=== PATIENT | male | born 1970 | race African-American/Black ===

== ENCOUNTER 2019-03-14 03:20 | Emergency (ER) | payer SELFPAY ==
[2019-03-14] MEDS ORDERED: Metoclopramide 10 MG/2 ML SDV IVPUSH ONE (03:53)
[2019-03-14] MEDS ORDERED: Acetaminophen 325 MG Tab PO PRN (03:54)
--- NOTE | 2019-03-14 03:54 | EDM.PDOC ---
ED HPI GENERAL MEDICAL PROBLEM - General Chief Complaint: General Stated Complaint: BODY ACHES/NUMBNESS IN LEGS Time Seen by Provider: 03/14/19 03:48 Source of Information: Reports: Patient History Limitations: Reports: No Limitations - History of Present Illness INITIAL COMMENTS - FREE TEXT/NARRATIVE: 48-year-old male of descent presents to the ED with an illness that started last March 05. He presents with recurrent fever and chills. He's had intermittent nausea and vomiting. No diarrhea. Since today due to generalized severe weakness and cramping in his lower extremities. He feels very weak and dizzy when he tries to stand and is barely able to walk. Denies cough or sputum production. He admits that he has uncontrolled hypertension as his initial BP is 230/130. Denies any dysuria urgency or frequency. Denies having sex with other men. He states he knows he's losing weight but not sure how much. Can't eat at all for the last 3-4 days. They're unable to keep down a little fluids. Patient states he doesn't take any medications. He is been advised that it remains high blood pressure medicines but has not been taking any. Planes of a diffuse headache. Onset: Gradual Onset Date: 03/05/19 Duration: Day(s): (Is been sick for the last 7 days.), Getting Worse Location: Reports: Generalized, Other (Generalized bodyaches myalgia particularly his lower extremities. Associated headache. Decreased appetite barely able to take any food or solids and for 4 days.) Quality: Reports: Ache (Intermittent cramping in his lower extremities. His body ache.), Other Severity: Moderate Improves with: Reports: None Worsens with: Reports: Other Context: Denies: Activity, Exercise (Seems to be worse when he stands up or tries to walk.), Lifting, Sick Contact, Trauma, Other Associated Symptoms: Reports: Diaphoresis, Fever/Chills, Headaches, Loss of Appetite, Malaise, Nausea/Vomiting, Weakness, Other (Denies any diarrhea.). 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 [No Known Home Meds] 03/14/19 [History] Past Medical History Cardiovascular History: Reports: Hypertension (But has never been on medication for this but advised that he should be on medication for it but is refused treatment.) Social & Family History - Living Situation & Occupation Living situation: Reports: Single ED ROS GENERAL - Review of Systems Review Of Systems: See Below Constitutional: Reports: Fever, Chills, Malaise, Weakness, Fatigue, Decreased Appetite HEENT: Reports: Other (Photosensitive eyes.) Respiratory: Reports: No Symptoms Cardiovascular: Reports: Blood Pressure Problem. Denies: Chest Pain, Claudication, Dyspnea on Exertion, Edema, Lightheadedness, Orthopnea ( Hypertension) Endocrine: Reports: Fatigue GI/Abdominal: Reports: Decreased Appetite, Nausea, Vomiting (Has had intermittent nausea and vomiting over the last few days but usually once daily.) . Denies: Diarrhea : Reports: Other (Making very little urine. Start gambling color.) Musculoskeletal: Reports: Muscle Pain (Analyzed severe myalgia.) Skin: Reports: No Symptoms Neurological: Reports: Dizziness, Numbness (Dizziness when he stands up.), Tingling, Difficulty Walking ( since his legs), Weakness (His lower extremities) . Denies: Confusion Psychiatric: Reports: No Symptoms Hematologic/Lymphatic: Reports: No Symptoms Immunologic: Reports: No Symptoms ED EXAM, GENERAL - Physical Exam Exam: See Below Exam Limited By: No Limitations General Appearance: Alert, WD/WN, Moderate Distress, Other (She looks very ill.) Eye Exam: Bilateral Eye: Normal Inspection (No scleral icterus.) Ears: Normal TMs Ear Exam: Right Ear: TM Red Throat/Mouth: Other Head: Atraumatic, Normocephalic (Is coated and dry.) Neck: Normal Inspection, Supple, Non-Tender, Full Range of Motion. No: Lymphadenopathy (L), Lymphadenopathy (R) Respiratory/Chest: No Respiratory Distress, Lungs Clear, Normal Breath Sounds, No Accessory Muscle Use, Chest Non-Tender Cardiovascular: Normal Peripheral Pulses, Regular Rate, Rhythm, No Edema, No Gallop, No Murmur Peripheral Pulses: 3+: Posterior Tibial (L), Posterior Tibial (R), Dorsalis Pedis (L), Dorsalis Pedis (R) GI/Abdominal: Normal Bowel Sounds, Soft, Non-Tender, No Organomegaly, No Abnormal Bruit, No Mass, Pelvis Stable, Other (No surgical scars.). No: Guarding, Rigid, Rebound Back Exam: Normal Inspection, Full Range of Motion. No: CVA Tenderness (L), CVA Tenderness (R) Extremities: Normal Inspection, Normal Range of Motion, No Pedal Edema, Other ( Interval palpation in his musculature of his lower extremities but there is no signs of DVT or edema.) Neurological: Alert, Oriented, CN II-XII Intact, Normal Cognition. No: Normal Gait Psychiatric: Normal Affect, Normal Mood Skin Exam: Warm, Dry, Intact, Normal Color, No Rash EKG INTERPRETATION EKG Date: 03/14/19 Time: 04:52 Rhythm: NSR Rate (Beats/Min): 61 [place]: LAD-Left [place] Deviation P-Wave: Enlarged (Mild left axis deviation of -18) QRS: Other (left atrial hypertrophy severe left ventricular hypertrophy pattern with strain or repolarization abnormality. There is diffuse early repolarization pattern secondary to left ventricular hypertrophy pattern.) QT: Prolonged (QTC is moderately prolonged.) EKG Interpretation Comments: Abnormal ECG Course - Vital Signs Last Recorded V/S: Last Vital Signs Temp 37.2 C 03/14/19 03:36 Pulse 64 03/14/19 03:36 Resp 16 03/14/19 03:36 BP 210/106 H 03/14/19 06:02 Pulse Ox 100 03/14/19 03:36 - Orders/Labs/Meds Orders: Active Orders 24 hr Category Date Time Status EKG Documentation Completion [RC] STAT Care 03/14/19 03:49 Active EKG Documentation Completion [RC] STAT Care 03/14/19 03:55 Active Chest 1V Frontal [CR] Stat Exams 03/14/19 03:49 Taken CULTURE BLOOD [BC] Stat Lab 03/14/19 04:00 Received CULTURE BLOOD [BC] Stat Lab 03/14/19 04:11 Received MAGNESIUM [CHEM] Stat Lab 03/14/19 07:25 Received PRO B-TYPE NATRIUR PEPT,BNPPRO [CHEM] Stat Lab 03/14/19 07:25 Received Acetaminophen [Tylenol] Med 03/14/19 03:54 Active 975 mg PO Q4H PRN Dextrose 5%-0.9% NaCl [Dextrose 5%-Normal Saline] 1,000 Med 03/14/19 04:00 Active ml IV ASDIRECTED niCARdipine HCl [Nicardipine HCl] 25 mg Med 03/14/19 07:15 Active Sodium Chloride 0.9% [Normal Saline] 250 ml IV ASDIRECTED Blood Culture x2 Reflex Set [OM.PC] Stat Oth 03/14/19 03:50 Ordered Medication Orders Acetaminophen (Tylenol) 975 mg PO Q4H PRN PRN Reason: Pain Last Admin: 03/14/19 04:06 Dose: 975 mg Dextrose/Sodium Chloride (Dextrose 5%-Normal Saline) 1,000 mls @ 999 mls/hr IV ASDIRECTED MAURY Last Admin: 03/14/19 04:05 Dose: 999 mls/hr Nicardipine HCl 25 mg/ Sodium (Chloride) 260 mls @ 52 mls/hr IV ASDIRECTED MAURY Last Admin: 03/14/19 07:35 Dose: 5 mg/hr, 52 mls/hr Labs: Laboratory Tests 03/14/19 03/14/19 03/14/19 Range/Units 04:00 04:00 04:00 WBC 4.99 (4.23-9.07) K/mm3 RBC 5.58 (4.63-6.08) M/mm3 Hgb 16.2 (13.7-17.5) gm/dl Hct 45.8 (40.1-51.0) % MCV 82.1 (79.0-92.2) fl MCH 29.0 (25.7-32.2) pg MCHC 35.4 (32.2-35.5) g/dl RDW Std Deviation 42.7 (35.1-43.9) fL Plt Count 256 (163-337) K/mm3 MPV 10.5 (9.4-12.3) fl Neutrophils % (Manual) 75 H (40-60) % Band Neutrophils % 0 (0-10) % Lymphocytes % (Manual) 12 L (20-40) % Atypical Lymphs % 0 % Monocytes % (Manual) 13 H (2-10) % Eosinophils % (Manual) 0 L (0.8-7.0) % Basophils % (Manual) 0 L (0.2-1.2) Platelet Estimate Adequate Plt Morphology Comment Normal RBC Morph Comment Normal ESR 14 (0-15) mm/hr PT 11.9 (9.7-12.0) SECONDS INR 1.10 APTT 25 (22-31) SECONDS Sodium (136-145) mEq/L Potassium (3.5-5.1) mEq/L Chloride (98-107) mEq/L Carbon Dioxide (21-32) mEq/L Anion Gap (5-15) BUN (7-18) mg/dL Creatinine (0.7-1.3) mg/dL Est Cr Clr Drug Dosing mL/min Estimated GFR (MDRD) (>60) mL/min BUN/Creatinine Ratio (14-18) Glucose (74-106) mg/dL Calcium (8.5-10.1) mg/dL Total Bilirubin (0.2-1.0) mg/dL AST (15-37) U/L ALT (16-63) U/L Alkaline Phosphatase (46-116) U/L Creatine Kinase (39-308) U/L C-Reactive Protein (<1.0) mg/dL Total Protein (6.4-8.2) g/dl Albumin (3.4-5.0) g/dl Globulin gm/dL Albumin/Globulin Ratio (1-2) TSH 3rd Generation (0.358-3.74) uIU/mL Urine Color (Yellow) Urine Appearance (Clear) Urine pH (5.0-8.0) Ur Specific [place] (1.005-1.030) Urine Protein (Negative) Urine Glucose (UA) (Negative) Urine Ketones (Negative) Urine Occult Blood (Negative) Urine Nitrite (Negative) Urine Bilirubin (Negative) Urine Urobilinogen (0.2-1.0) Ur Leukocyte Esterase (Negative) Urine RBC (0-5) /hpf Urine WBC (0-5) /hpf Ur Epithelial Cells (0-5) /hpf Urine Bacteria (FEW) /hpf Fine Granular Casts (0-5) /lpf Urine Mucus (FEW) /hpf Monoscreen (NEGATIVE) HIV-1 Ab Rapid Screen (NEGATIVE) 03/14/19 03/14/19 03/14/19 Range/Units 04:00 04:00 04:00 WBC (4.23-9.07) K/mm3 RBC (4.63-6.08) M/mm3 Hgb (13.7-17.5) gm/dl Hct (40.1-51.0) % MCV (79.0-92.2) fl MCH (25.7-32.2) pg MCHC (32.2-35.5) g/dl RDW Std Deviation (35.1-43.9) fL Plt Count (163-337) K/mm3 MPV (9.4-12.3) fl Neutrophils % (Manual) (40-60) % Band Neutrophils % (0-10) % Lymphocytes % (Manual) (20-40) % Atypical Lymphs % % Monocytes % (Manual) (2-10) % Eosinophils % (Manual) (0.8-7.0) % Basophils % (Manual) (0.2-1.2) Platelet Estimate Plt Morphology Comment RBC Morph Comment ESR (0-15) mm/hr PT (9.7-12.0) SECONDS INR APTT (22-31) SECONDS Sodium 137 (136-145) mEq/L Potassium 3.3 L (3.5-5.1) mEq/L Chloride 99 (98-107) mEq/L Carbon Dioxide 27 (21-32) mEq/L Anion Gap 14.3 (5-15) BUN 24 H (7-18) mg/dL Creatinine 2.1 H (0.7-1.3) mg/dL Est Cr Clr Drug Dosing 42.07 mL/min Estimated GFR (MDRD) 34 (>60) mL/min BUN/Creatinine Ratio 11.4 L (14-18) Glucose 123 H (74-106) mg/dL Calcium 10.1 (8.5-10.1) mg/dL Total Bilirubin 0.9 (0.2-1.0) mg/dL AST 40 H (15-37) U/L ALT 38 (16-63) U/L Alkaline Phosphatase 118 H (46-116) U/L Creatine Kinase 431 H (39-308) U/L C-Reactive Protein 0.5 (<1.0) mg/dL Total Protein 8.9 H (6.4-8.2) g/dl Albumin 4.4 (3.4-5.0) g/dl Globulin 4.5 gm/dL Albumin/Globulin Ratio 1.0 (1-2) TSH 3rd Generation (0.358-3.74) uIU/mL Urine Color (Yellow) Urine Appearance (Clear) Urine pH (5.0-8.0) Ur Specific [place] (1.005-1.030) Urine Protein (Negative) Urine Glucose (UA) (Negative) Urine Ketones (Negative) Urine Occult Blood (Negative) Urine Nitrite (Negative) Urine Bilirubin (Negative) Urine Urobilinogen (0.2-1.0) Ur Leukocyte Esterase (Negative) Urine RBC (0-5) /hpf Urine WBC (0-5) /hpf Ur Epithelial Cells (0-5) /hpf Urine Bacteria (FEW) /hpf Fine Granular Casts (0-5) /lpf Urine Mucus (FEW) /hpf Monoscreen (NEGATIVE) HIV-1 Ab Rapid Screen Negative (NEGATIVE) 03/14/19 03/14/19 03/14/19 Range/Units 04:00 04:00 05:10 WBC (4.23-9.07) K/mm3 RBC (4.63-6.08) M/mm3 Hgb (13.7-17.5) gm/dl Hct (40.1-51.0) % MCV (79.0-92.2) fl MCH (25.7-32.2) pg MCHC (32.2-35.5) g/dl RDW Std Deviation (35.1-43.9) fL Plt Count (163-337) K/mm3 MPV (9.4-12.3) fl Neutrophils % (Manual) (40-60) % Band Neutrophils % (0-10) % Lymphocytes % (Manual) (20-40) % Atypical Lymphs % % Monocytes % (Manual) (2-10) % Eosinophils % (Manual) (0.8-7.0) % Basophils % (Manual) (0.2-1.2) Platelet Estimate Plt Morphology Comment RBC Morph Comment ESR (0-15) mm/hr PT (9.7-12.0) SECONDS INR APTT (22-31) SECONDS Sodium (136-145) mEq/L Potassium (3.5-5.1) mEq/L Chloride (98-107) mEq/L Carbon Dioxide (21-32) mEq/L Anion Gap (5-15) BUN (7-18) mg/dL Creatinine (0.7-1.3) mg/dL Est Cr Clr Drug Dosing mL/min Estimated GFR (MDRD) (>60) mL/min BUN/Creatinine Ratio (14-18) Glucose (74-106) mg/dL Calcium (8.5-10.1) mg/dL Total Bilirubin (0.2-1.0) mg/dL AST (15-37) U/L ALT (16-63) U/L Alkaline Phosphatase (46-116) U/L Creatine Kinase (39-308) U/L C-Reactive Protein (<1.0) mg/dL Total Protein (6.4-8.2) g/dl Albumin (3.4-5.0) g/dl Globulin gm/dL Albumin/Globulin Ratio (1-2) TSH 3rd Generation 1.128 (0.358-3.74) uIU/mL Urine Color Yellow (Yellow) Urine Appearance Clear (Clear) Urine pH 7.0 (5.0-8.0) Ur Specific [place] 1.025 (1.005-1.030) Urine Protein 3+ H (Negative) Urine Glucose (UA) 1+ H (Negative) Urine Ketones Negative (Negative) Urine Occult Blood 2+ H (Negative) Urine Nitrite Negative (Negative) Urine Bilirubin Negative (Negative) Urine Urobilinogen 0.2 (0.2-1.0) Ur Leukocyte Esterase Negative (Negative) Urine RBC 5-10 H (0-5) /hpf Urine WBC 0-5 (0-5) /hpf Ur Epithelial Cells Not seen (0-5) /hpf Urine Bacteria Moderate H (FEW) /hpf Fine Granular Casts 0-5 (0-5) /lpf Urine Mucus Rare (FEW) /hpf Monoscreen Negative (NEGATIVE) HIV-1 Ab Rapid Screen (NEGATIVE) Meds: Medications Generic Name Dose Route Start Last Admin Trade Name Freq PRN Reason Stop Dose Admin Acetaminophen 975 mg 03/14/19 03:54 03/14/19 04:06 Tylenol PO 975 mg Q4H PRN Administration Pain Dextrose/Sodium Chloride 1,000 mls @ 999 mls/hr 03/14/19 04:00 03/14/19 04:05 Dextrose 5%-Normal Saline IV 999 mls/hr ASDIRECTED MAURY Administration Nicardipine HCl 25 mg/ Sodium 260 mls @ 52 mls/hr 03/14/19 07:15 03/14/19 07: 35 Chloride IV 5 mg/hr ASDIRECTED MAURY 52 mls/hr Administration 5 MG/HR Discontinued Medications Generic Name Dose Route Start Last Admin Trade Name Noam PRN Reason Stop Dose Admin Amlodipine Besylate 10 mg 03/14/19 05:00 03/14/19 05:21 Norvasc PO 03/14/19 05:01 10 mg ONETIME ONE Administration Doxazosin Mesylate 4 mg 03/14/19 05:54 03/14/19 06:02 Cardura PO 03/14/19 05:55 4 mg ONETIME ONE Administration Hydralazine HCl 10 mg 03/14/19 04:59 03/14/19 05:21 Apresoline IVPUSH 03/14/19 05:00 10 mg ONETIME ONE Administration Hydralazine HCl 10 mg 03/14/19 05:53 03/14/19 06:02 Apresoline IVPUSH 03/14/19 05:54 10 mg ONETIME ONE Administration Hydromorphone HCl 1 mg 03/14/19 06:58 03/14/19 07:20 Dilaudid IVPUSH 03/14/19 06:59 1 mg ONETIME ONE Administration Labetalol HCl 20 mg 03/14/19 06:31 03/14/19 06:40 Normodyne IVPUSH 03/14/19 06:32 20 mg ONETIME ONE Administration Protocol Metoclopramide HCl 7.5 mg 03/14/19 03:53 03/14/19 04:06 Reglan IVPUSH 03/14/19 03:54 7.5 mg ONETIME ONE Administration Ondansetron HCl 4 mg 03/14/19 06:58 03/14/19 07:20 Zofran IVPUSH 03/14/19 06:59 4 mg ONETIME ONE Administration - Radiology Interpretation Free Text/Narrative:: 48-year-old male of descent presents to the ED with an illness that spanned 7-8 days in length. By history is that intermittent fever chills and nausea and vomiting. I suspect his lower extremity weakness and cramping is due to severe volume depletion. I could find no localized source of infection but he is indeed febrile. IV will be D5 normal saline at open. Tylenol 975 mg by mouth for fever relief. Reglan 7.5 mg IV for nausea relief. Labs including blood cultures 2. Urinalysis when one becomes available. - Re-Assessments/Exams Free Text/Narrative Re-Assessment/Exam: 03/14/19 04:48 chest x-ray reveals mildly hyperinflated lung isaacs and mild to moderate cardiomegaly. Comments of the right pulmonary artery appreciated. No definitive pulmonary infiltrate appreciated. 03/14/19 05:01 blood pressure remains markedly elevated at 2 04/04/18. His ECG shows marked left ventricular hypertrophy pattern with strain suggesting this is a severe running blood pressure problem. Will be given hydralazine 10 mg IV and Norvasc 10 mg orally. 03/14/19 05:45 pressure remains elevated at 203/100. It is now 20 minutes since he had a dose of hydralazine. Will repeat hydralazine 10 mg IV.White count is 4.99. Differential shows 75% neutrophils with no bands. Hemoglobin is 16.2 with hematocrit of 45.8. Platelet count is 2 and 56,000. Sedimentation rate is 14. PT is 11.9 with an INR of 1.10. PTT is 25. Sodium 137 potassium slightly low at 3.3. Chloride 99 with a bicarbonate of 27. Anion gap is 14.3. BUN is 24. Creatinine is 2.1 with a GFR of 34 i.e. stage III chronic kidney disease. Glucose is 123 calcium is 10.1 total bilirubin is 0.9. AST is elevated at 40 ALT is elevated at 38 alk phosphatase is 118. Total CPK is elevated at 431. C- reactive protein is still 0.5. Total protein is elevated at 8.9 albumin fraction 4.4 urinalysis shows 3+ proteinuria 1+ glucosuria and 2+ occult blood. Leukocyte esterase is negative. Monospot is negative and HIV screen is negative as well.. Influenza screen was negative as well. 03/14/19 06:21 Blood pressure is 198/87. The source of his fever appears to be viral in etiology. He is showing signs of malignant hypertension with end organ damage to his eyes heart and kidney. It appears that he is going to need admission to the hospital for blood pressure management. First secondary causes of hypertension such as renal arteries stenosis. Rule out excessive aldosterone. Since his blood pressure remains high and his heart rate is 63 am going to try one dose of labetalol 20 mg IV and see how his heart rate responds.. 03/14/19 07:06 patient's heart rate went up to 69 bpm BP is down to 186/98. Going to place him on a cart appearing drip at 5 mg per hour for now. Spoken with Dr. Mabry and the plan will be to admit the patient to the hospital for malignant hypertension. Because he is complaining of such a severe headache which I presumed was secondary to the high blood pressure going to have CT head done to make sure he does not have an intracranial hemorrhage or intracranial hypertension. 03/14/19 07:20: CT of the brain reveals blood seen within the lateral ventricles which is more prominent on the left side. Blood is seen within the third ventricle as well as blood being seen within the fourth ventricle. Small hemorrhage felt to be present within the subarachnoid region or possibly cortical in location within the left temporoparietal junction. Small parenchymal hemorrhages noted within the head of the left caudate nucleus which dissects into the periventricular white ma no additional hemorrhage is appreciated. Mild midline shift is seen to the right side by approximately 3 mm. No acute calvarial abnormality is identified. I have instructed the patient that he does have an intracranial bleeding secondary to uncontrolled hypertension. Heart appearing drip has been started at 5 mg an hour. Blood pressures down to 177/85 after the labetalol 20 mg IV and heart rate is staying in the 60s. I spoken with Dr. Armstrong through the emergency department at [facility] and he is accepted care of this patient. Patient be the first to travel on the icy roads to [place] when the emesis becomes available hopefully around 0800 hrs. Departure - Departure Time of Disposition: 07:50 Disposition: DC/Tfer to Acute Hospital 02 Condition: Serious Clinical Impression: Malignant hypertension, Fever of unknown origin, Chronic renal insufficiency, stage III (moderate), Intracranial hemorrhage, CVA, Cerebrovascular accident Headache Qualifiers: Headache chronicity pattern: acute headache - Discharge Information *PRESCRIPTION DRUG MONITORING PROGRAM REVIEWED*: Not Applicable *COPY OF PRESCRIPTION DRUG MONITORING REPORT IN PATIENT RUDDY: Not Applicable Referrals: PCP,None [Primary Care Provider] - Forms: ED Department Discharge - My Orders Last 24 Hours: My Active Orders 03/14/19 03:49 EKG Documentation Completion [RC] STAT Chest 1V Frontal [CR] Stat 03/14/19 03:50 Blood Culture x2 Reflex Set [OM.PC] Stat 03/14/19 03:54 Acetaminophen [Tylenol] 975 mg PO Q4H PRN 03/14/19 03:55 EKG Documentation Completion [RC] STAT 03/14/19 04:00 CULTURE BLOOD [BC] Stat Dextrose 5%-0.9% NaCl [Dextrose 5%-Normal Saline] 1,000 ml IV ASDIRECTED 03/14/19 04:11 CULTURE BLOOD [BC] Stat 03/14/19 07:15 niCARdipine HCl [Nicardipine HCl] 25 mg Sodium Chloride 0.9% [Normal Saline] 250 ml IV ASDIRECTED 03/14/19 07:25 MAGNESIUM [CHEM] Stat PRO B-TYPE NATRIUR PEPT,BNPPRO [CHEM] Stat - Assessment/Plan Last 24 Hours: My Active Orders 03/14/19 03:49 EKG Documentation Completion [RC] STAT Chest 1V Frontal [CR] Stat 03/14/19 03:50 Blood Culture x2 Reflex Set [OM.PC] Stat 03/14/19 03:54 Acetaminophen [Tylenol] 975 mg PO Q4H PRN 03/14/19 03:55 EKG Documentation Completion [RC] STAT 03/14/19 04:00 CULTURE BLOOD [BC] Stat Dextrose 5%-0.9% NaCl [Dextrose 5%-Normal Saline] 1,000 ml IV ASDIRECTED 03/14/19 04:11 CULTURE BLOOD [BC] Stat 03/14/19 07:15 niCARdipine HCl [Nicardipine HCl] 25 mg Sodium Chloride 0.9% [Normal Saline] 250 ml IV ASDIRECTED 03/14/19 07:25 MAGNESIUM [CHEM] Stat PRO B-TYPE NATRIUR PEPT,BNPPRO [CHEM] Stat
[2019-03-14] MEDS ORDERED: Dextrose 5%-0.9% NaCl 1,000 ML IV SCH (04:00)
[2019-03-14] MEDS ORDERED: hydrALAZINE 20 MG/ML SDV IVPUSH ONE ×2 (04:59→05:53)
[2019-03-14] MEDS ORDERED: amLODIPine 10 MG Tab PO ONE (05:00)
[2019-03-14] MEDS ORDERED: Doxazosin 4 MG Tab PO ONE (05:54)
[2019-03-14] MEDS ORDERED: Labetalol 100 MG/20 ML MDV IVPUSH ONE (06:31)
[2019-03-14] MEDS ORDERED: Ondansetron 4 MG/2 ML SDV IVPUSH ONE (06:58)
[2019-03-14] MEDS ORDERED: HYDROmorphone 1 MG/ML Syringe IVPUSH ONE (06:58)
[2019-03-14] MEDS ORDERED: niCARdipine HCl 25 MG in Sodium Chloride 0.9% 250 ML IV SCH (07:15)
--- NOTE | 2019-03-14 07:36 | CT ---
Head CT Technique: Multiple axial sections through the brain were obtained. Intravenous contrast was utilized. Comparison: No prior intracranial hemorrhage. Findings: Blood is seen within the lateral ventricles which is more prominent on the left side. Blood is seen within the third ventricle as well as blood being seen within the fourth ventricle. Small hemorrhage felt to be present within the subarachnoid region or possibly cortical in location within the left temporoparietal junction. Small parenchymal hemorrhage is noted within the head of the left caudate nucleus which dissects into the periventricular white matter. No additional hemorrhage is appreciated. Mild midline shift is seen to the right side by approximately 3 mm. Bone window settings were reviewed which mastoid sinuses and paranasal sinuses to appear clear. No acute calvarial abnormality is seen. Impression: 1. Small parenchymal hemorrhage within the caudate nucleus which dissects into the periventricular white matter and shows rupture into the left lateral ventricle. Blood is noted within the lateral ventricles, third ventricle and fourth ventricle. 2. Right-sided midline shift by 3 mm. 4. Small hemorrhage either subarachnoid or possibly cortical in location involving left temporoparietal junction Note: Findings have the appearance of hypertensive hemorrhage. Diagnostic code #5
--- NOTE | 2019-03-14 08:12 | CR ---
Chest: Frontal view of the chest was obtained. Comparison: No previous chest x-ray. Heart size is mildly enlarged. Tortuous thoracic aorta is seen. Lungs show no acute parenchymal change. Bony structures are grossly intact. Impression: 1. Heart is mildly prominent. Please correlate if etiology for this finding is known. 2. Nothing acute is otherwise seen. Diagnostic code #3
== END 2019-03-14 08:55 ==
LOC: JD.ED 03:20
DX: I62.9 Nontraumatic intracranial hemorrhage, unspecified (principal); I12.9 Hypertensive chronic kidney disease with stage 1 through stage 4 chronic kidney disease, or unspecified chronic kidney disease; N18.3 Chronic kidney disease, stage 3 (moderate)
CPT/HCPCS: 36415; 70450; 71045; 80053; 81001; 82550; 83735; 83880; 84443; 85007; 85027; 85610; 85652; 85730; 86140; 86308; 87040; 87449; 87804; 93005; 96361; 96365; 96375; 96376; 99285; A9270; J0360; J1170; J2405; J2765; J3490; J7042; J7050; G0433

== ENCOUNTER 2019-06-16 14:06 | Emergency (ER) | payer SELFPAY ==
[2019-06-16] MEDS ORDERED: Sodium Chloride 0.9% 10 ML Syringe FLUSH PRN (14:37)
--- NOTE | 2019-06-16 14:40 | EDM.PDOC ---
<Sarina Hernandez - Last Filed: 06/16/19 14:33> ED HPI GENERAL MEDICAL PROBLEM - General Chief Complaint: Chest Pain Stated Complaint: CHEST PAIN Time Seen by Provider: 06/16/19 14:23 Source of Information: Reports: Patient History Limitations: Reports: No Limitations - History of Present Illness INITIAL COMMENTS - FREE TEXT/NARRATIVE: 48-year-old male presents with chest pain that has been ongoing for one month. He has been unable to get in to see his primary care provider. He states that the pain is constant but is 9/10 when taking deep breaths. The pain is located over the left mid-chest and does not radiate. He denies palpitations, lower extremity edema, and shortness of breath. He has a history of hypertension for which he is being treated with losartan, amlodipine, doxazosin, and labetalol. He did not take his medications this morning. The patient also noted a history of a brain hemorrhage due to the hypertension in March 2019. Onset: Gradual (over one month) Duration: Constant Location: Reports: Chest (left middle) Severity: Severe (9/10) Worsens with: Reports: Breathing Associated Symptoms: Reports: Chest Pain. Denies: Cough, Fever/Chills, Headaches, Nausea/Vomiting, Shortness of Breath Chest Pain Score (Numeric/FACES): 9 - Related Data Allergies Allergy/AdvReac Type Severity Reaction Status Date / Time No Known Allergies Allergy Verified 03/14/19 03:39 Home Meds: Home Meds Doxazosin [Cardura] 2 mg PO DAILY 06/16/19 [History] Labetalol HCl [Labetalol] 300 mg PO BID 06/16/19 [History] Losartan [Cozaar] 50 mg PO BID 06/16/19 [History] amLODIPine [Norvasc] 5 mg PO BID 06/16/19 [History] Past Medical History - Past Health History Medical/Surgical History: Denies Medical/Surgical History Cardiovascular History: Reports: Hypertension Social & Family History - Family History Family Medical History: Noncontributory - Tobacco Use Smoking Status *Q: Never Smoker - Caffeine Use Caffeine Use: Reports: None - Living Situation & Occupation Living situation: Reports: Single ED ROS GENERAL - Review of Systems Review Of Systems: See Below Constitutional: Reports: No Symptoms HEENT: Reports: No Symptoms Respiratory: Reports: Pleuritic Chest Pain. Denies: Shortness of Breath, Cough Cardiovascular: Reports: Chest Pain, Blood Pressure Problem. Denies: Dyspnea on Exertion, Edema, Palpitations Endocrine: Reports: No Symptoms GI/Abdominal: Reports: No Symptoms : Reports: No Symptoms Musculoskeletal: Reports: No Symptoms Skin: Reports: No Symptoms Neurological: Reports: No Symptoms Psychiatric: Reports: No Symptoms Hematologic/Lymphatic: Reports: No Symptoms ED EXAM, GENERAL - Physical Exam Exam: See Below Exam Limited By: No Limitations General Appearance: Alert, WD/WN, Mild Distress Respiratory/Chest: No Respiratory Distress, Lungs Clear, Normal Breath Sounds, No Accessory Muscle Use, Other (point tenderness along lower left sternal border ) Cardiovascular: Normal Peripheral Pulses, Regular Rate, Rhythm, No Edema, No Murmur GI/Abdominal: Normal Bowel Sounds, Soft, Non-Tender, No Organomegaly, No Distention, No Mass Back Exam: Normal Inspection Neurological: Alert, Oriented, Normal Cognition Psychiatric: Normal Affect, Normal Mood Skin Exam: Warm, Dry, Intact, Normal Color, No Rash Course - Vital Signs Last Recorded V/S: Last Vital Signs Temp 97.5 F 06/16/19 14:17 Pulse 60 06/16/19 14:17 Resp 16 06/16/19 14:17 BP 168/106 H 06/16/19 14:17 Pulse Ox 100 06/16/19 14:17 - Orders/Labs/Meds Orders: Active Orders 24 hr Category Date Time Status Cardiac Monitoring [RC] . DIRECTED Care 06/16/19 14:37 Active EKG Documentation Completion [RC] ASDIRECTED Care 06/16/19 14:28 Active Peripheral IV Care [RC] . DIRECTED Care 06/16/19 14:37 Active Sodium Chloride 0.9% [Saline Flush] Med 06/16/19 14:37 Active 10 ml FLUSH ASDIRECTED PRN Peripheral IV Insertion Adult [OM.PC] Stat Oth 06/16/19 14:37 Ordered EKG 12 Lead [EK] Stat Ther 06/16/19 14:28 Ordered Medication Orders Sodium Chloride (Saline Flush) 10 ml FLUSH ASDIRECTED PRN PRN Reason: Keep Vein Open Labs: Laboratory Tests 06/16/19 06/16/19 06/16/19 Range/Units 14:46 14:46 14:46 WBC 3.21 L (4.23-9.07) K/mm3 RBC 4.40 L (4.63-6.08) M/mm3 Hgb 13.2 L D (13.7-17.5) gm/dl Hct 38.3 L (40.1-51.0) % MCV 87.0 D (79.0-92.2) fl MCH 30.0 (25.7-32.2) pg MCHC 34.5 (32.2-35.5) g/dl RDW Std Deviation 45.1 H (35.1-43.9) fL Plt Count 228 (163-337) K/mm3 MPV 9.8 (9.4-12.3) fl Neut % (Auto) 48.6 (34.0-67.9) % Lymph % (Auto) 40.5 (21.8-53.1) % Wetzel % (Auto) 8.4 (5.3-12.2) % Eos % (Auto) 2.2 (0.8-7.0) Baso % (Auto) 0.3 (0.1-1.2) % Neut # (Auto) 1.56 L (1.78-5.38) K/mm3 Lymph # (Auto) 1.30 L (1.32-3.57) K/mm3 Wetzel # (Auto) 0.27 L (0.30-0.82) K/mm3 Eos # (Auto) 0.07 (0.04-0.54) K/mm3 Baso # (Auto) 0.01 (0.01-0.08) K/mm3 D-Dimer, Quantitative 0.23 (0.19-0.50) mg/L Sodium 140 (136-145) mEq/L Potassium 4.1 (3.5-5.1) mEq/L Chloride 105 (98-107) mEq/L Carbon Dioxide 27 (21-32) mEq/L Anion Gap 12.1 (5-15) BUN 27 H (7-18) mg/dL Creatinine 1.8 H (0.7-1.3) mg/dL Est Cr Clr Drug Dosing 49.08 mL/min Estimated GFR (MDRD) 49 (>60) mL/min BUN/Creatinine Ratio 15.0 (14-18) Glucose 91 (74-106) mg/dL Calcium 9.1 (8.5-10.1) mg/dL Total Bilirubin 0.5 (0.2-1.0) mg/dL AST 19 (15-37) U/L ALT 36 (16-63) U/L Alkaline Phosphatase 67 (46-116) U/L Troponin I 0.027 (0.00-0.056) ng/mL Total Protein 7.7 (6.4-8.2) g/dl Albumin 3.9 (3.4-5.0) g/dl Globulin 3.8 gm/dL Albumin/Globulin Ratio 1.0 (1-2) Meds: Medications Generic Name Dose Route Start Last Admin Trade Name Freq PRN Reason Stop Dose Admin Sodium Chloride 10 ml 06/16/19 14:37 Saline Flush FLUSH ASDIRECTED PRN Keep Vein Open Departure - Departure Disposition: Home, Self-Care 01 Clinical Impression: Atypical chest pain, Renal insufficiency - Discharge Information Referrals: Jessica Hancock PA-C [Primary Care Provider] - 1 Week Forms: ED Department Discharge Additional Instructions: Take your medication as prescribed. Drink plenty of fluids. Follow up with Jessica Hancock within a week. Please return if you are worse. Sepsis Event Note - Evaluation Sepsis Screening Result: No Definite Risk - Focused Exam Vital Signs: Vital Signs Temp Pulse Resp BP Pulse Ox 06/16/19 14:17 97.5 F 60 16 168/106 H 100 Date Exam was Performed: 06/16/19 Time Exam was Performed: 14:33 - My Orders Last 24 Hours: My Active Orders 06/16/19 14:28 EKG Documentation Completion [RC] ASDIRECTED EKG 12 Lead [EK] Stat 06/16/19 14:37 Cardiac Monitoring [RC] . DIRECTED Peripheral IV Care [RC] . DIRECTED Sodium Chloride 0.9% [Saline Flush] 10 ml FLUSH ASDIRECTED PRN Peripheral IV Insertion Adult [OM.PC] Stat - Assessment/Plan Last 24 Hours: My Active Orders 06/16/19 14:28 EKG Documentation Completion [RC] ASDIRECTED EKG 12 Lead [EK] Stat 06/16/19 14:37 Cardiac Monitoring [RC] . DIRECTED Peripheral IV Care [RC] . DIRECTED Sodium Chloride 0.9% [Saline Flush] 10 ml FLUSH ASDIRECTED PRN Peripheral IV Insertion Adult [OM.PC] Stat <Brendon Cruz A - Last Filed: 06/16/19 16:35> Course - Re-Assessments/Exams Free Text/Narrative Re-Assessment/Exam: 06/16/19 16:21 I examined the patient myself and I agree with [facility]'s assessment and plan. I ordered an IV saline lock, EKG, CXR and labs. His EKG shows a NSR with inverted T waves in the inferior leads and normal early repol. No acute changes from prior. His WBC was low at 3.21. His Hgb was low at 13.2. His D- dimer was negative. His creatinine was elevated at 1.8. His troponin is negative. Departure - Departure Time of Disposition: 16:35 Condition: Good - Discharge Information *PRESCRIPTION DRUG MONITORING PROGRAM REVIEWED*: Not Applicable *COPY OF PRESCRIPTION DRUG MONITORING REPORT IN PATIENT RUDDY: Not Applicable Sepsis Event Note - Focused Exam Date Exam was Performed: 06/16/19 Time Exam was Performed: 16:33
--- NOTE | 2019-06-16 15:41 | CR ---
Chest: Two views of the chest were obtained. Comparison: Prior chest x-ray of 03/14/19. Heart is mildly enlarged. Tortuous thoracic aorta is seen. Lungs are clear with no acute parenchymal change. Bony structures are unremarkable. Impression: 1. Mild cardiomegaly. 2. Nothing acute is appreciated. No significant change from previous study is seen. Diagnostic code #3 This report was dictated in [place] Standard Time
== END 2019-06-16 16:46 | disposition home or self-care (01) ==
LOC: JD.ED 14:06
DX: R07.89 Other chest pain (principal); N28.9 Disorder of kidney and ureter, unspecified; I10 Essential (primary) hypertension; Z79.899 Other long term (current) drug therapy
CPT/HCPCS: 36415; 71046; 71046-26; 80053; 84484; 85025; 85379; 93005; 93010; 99284; 99285-25